=== PATIENT | male | born 1945 ===

== ENCOUNTER 2018-12-25 11:04 | Inpatient (IN) | payer MEDICARE, OTHER ==
[2018-12-25 11:05] VITALS: BMI 23.6
--- NOTE | 2018-12-25 11:42 | C.PDOC ---
History Of Present Illness 73 year old male with a history of alcohol abuse presents to the emergency department for evaluation of a fall prior to arrival. Patient is a poor historian. Patient reportedly fell at home, and his homemaker called EMS. Patient has been seen here numerous times for alcohol abuse, dizziness, and frequent falls. Patient denies any complaints at this time. Patient states his last drink was 2 days ago. as per records seen frequently for multiple falls. poor historian - HPI Time Seen by Provider: 12/25/18 11:16 Chief Complaint (Nursing): Trauma History Per: Patient Onset/Duration Of Symptoms: Hrs Injury Occurred (Timing): Just Before Arrival Past Medical History Reviewed: Historical Data, Nursing Documentation, Vital Signs Vital Signs: Last Vital Signs Temp 75 F L 12/25/18 11:13 Pulse 75 12/25/18 11:13 Resp 20 12/25/18 11:13 BP 111/62 12/25/18 11:13 Pulse Ox 92 L 12/25/18 11:13 Primary Care Provider: Alex Moore - Medical History PMH: Anxiety, Dementia, Depression, Gastritis, HTN, Kidney Stones, Pneumonia, Chronic Kidney Disease Denies: Diabetes, Hepatitis, HIV, Seizures, Sexually Transmitted Disease Surgical History: Tonsillectomy Family History: States: No Known Family Hx - Social History Hx Alcohol Use: Yes (Hx ETOH abuse) Hx Substance Use: No - Immunization History Hx Tetanus Toxoid Vaccination: No Hx Influenza Vaccination: No Hx Pneumococcal Vaccination: No Review Of Systems Review Of Systems: ROS cannot be obtained secondary to pt's inabilty to answer questions. Physical Exam - Physical Exam Appears: Non-toxic, No Acute Distress, Unkempt, Other (poor hygiene) Skin: Normal Color, Warm, Dry Head: Atraumatic, Normacephalic Eye(s): bilateral: Normal Inspection, PERRL, EOMI Nose: Normal Oral Mucosa: Moist Neck: Normal, Supple Chest: Symmetrical, No Tenderness Cardiovascular: Rhythm Regular, No Murmur Respiratory: Normal Breath Sounds, No Rales, No Rhonchi, No Wheezing Gastrointestinal/Abdominal: Soft, No Tenderness, No Guarding, No Rebound Extremity: Normal ROM Neurological/Psych: Oriented x3, Normal Speech, Normal Cognition ED Course And Treatment - Laboratory Results Result Diagrams: 12/26/18 07:05 12/26/18 07:05 ECG: Interpreted By Me, Viewed By Me ECG Rhythm: Sinus Rhythm, R BBB Rate From EC O2 Sat by Pulse Oximetry: 92 (RA) Pulse Ox Interpretation: Abnormal Medical Decision Making Medical Decision Making: ro intracrnail metabolic infectious etiology Plan: CT Head EKG Chemistry Bloodwork CXR Glucose POC Urinalysis ct shows subacute vs chronic subdurla. dsicussed with neurosx dr tami waterman findings chronic no need for further imaging. pt accepted dr tim logan, for frequent falls, unsafe discharge and living situaion unclear. Disposition - Disposition Disposition: HOSPITALIZED Disposition Time: 16:00 Condition: STABLE - Clinical Impression Clinical Impression: Frequent falls, Failure to thrive, Chronic subdural hematoma - Scribe Statement The provider has reviewed the documentation as recorded by the Scribe (Bernardo Sebastian) Provider Attestation: All medical record entries made by the Scribe were at my direction and personally dictated by me. I have reviewed the chart and agree that the record accurately reflects my personal performance of the history, physical exam, medical decision making, and the department course for this patient. I have also personally directed, reviewed, and agree with the discharge instructions and disposition. Decision To Admit - Pt Status Changed To: Hospital Disposition Of: Inpatient - Admit Certification Admit to Inpatient:: After my assessment, the patient will require hospitalization for at least two midnights. This is because of the severity of symptoms shown, intensity of services needed, and/or the medical risk in this patient being treated as an outpatient. - InPatient: Physician Admission Certification: I certify that this patient requires 2 or more midnights of care for the following reason:: needs social eval - . Bed Request Type: Regular Admitting Physician: Sissy Logan Patient Diagnosis: Frequent falls, Failure to thrive, Chronic subdural hematoma
[2018-12-25 11:48] LABS: BASO # 0.1 K/uL (0.0-0.2); BASO % 1.1 % (0.0-2.0); EOS # 0.6 K/uL (0.0-0.7); EOS % 7.2 % (0.0-4.0); LYMPH # 2.5 K/uL (1.0-4.3); LYMPH % 30.9 % (20.0-40.0); MEAN CORPUSCULAR HEMOGLOBIN 35.3 pg (27.0-31.0); MEAN CORPUSCULAR HGB CONC 35.1 g/dL (33.0-37.0); MEAN PLATELET VOLUME 9.1 fL (7.2-11.7); MONO # 0.4 K/uL (0.0-0.8); MONO % 5.4 % (0.0-10.0); NEUT # 4.4 K/uL (1.8-7.0); NEUT % 55.4 % (50.0-75.0); NRBC % 0.1 % (0.0-2.0); RBC 4.77 Mil/uL (4.40-5.90); RED CELL DISTRIBUTION WIDTH 14.9 % (11.5-14.5)
[2018-12-25 11:50] LABS: HEMOGLOBIN 16.8 g/dL (12.0-18.0); MEAN CELL VOLUME 100.4 fL (80.0-94.0)
[2018-12-25 11:58] LABS: INR 1.3; PARTIAL THROMBOPLASTIN TIME 33.5 SECONDS (21-34); PROTHROMBIN TIME 14.3 SECONDS (9.7-12.2)
[2018-12-25 12:04] LABS: ALB/GLOB RATIO 1.5 (1.0-2.1); ALBUMIN 4.6 g/dL (3.5-5.0); ALT/SGPT 28 U/L (21-72); AST/SGOT 39 U/L (17-59); BLOOD UREA NITROGEN 18 mg/dL (9-20); CALCIUM 10.3 mg/dl (8.6-10.4); GFR NON-AFRICAN AMERICAN 43; LIPASE 173 U/L (23-300)
--- NOTE | 2018-12-25 12:15 | CT ---
Date of service: 12/25/2018 PROCEDURE: CT HEAD WITHOUT CONTRAST. HISTORY: fall COMPARISON: 05/19/2017 TECHNIQUE: Axial computed tomography images were obtained through the head/brain without intravenous contrast. Radiation dose: Total exam DLP = 1191.24 mGy-cm. This CT exam was performed using one or more of the following dose reduction techniques: Automated exposure control, adjustment of the mA and/or kV according to patient size, and/or use of iterative reconstruction technique. FINDINGS: HEMORRHAGE: There is Iso to slightly low-attenuation subdural hematoma along the right cerebral convexity more prominent at the parietal occipital region may represent subacute or chronic hematoma. Maximum thickness of this subdural hematoma is 4.5 to 6 mm. BRAIN: No mass effect or edema. Ghdm-rq-hwxaeknd volume loss is again noted. Augh-bh-hpzfrsng chronic microvascular white matter ischemic changes are again noted. Again noted is focal encephalomalacia measures subcentimeter adjacent to the occipital horn of the right lateral ventricle image 37. VENTRICLES: Unremarkable. No hydrocephalus. CALVARIUM: Unremarkable. PARANASAL SINUSES: Paranasal sinuses mucosal disease is noted. MASTOID AIR CELLS: Unremarkable as visualized. No inflammatory changes. OTHER FINDINGS: None. IMPRESSION: Low-attenuation right cerebral convexity subdural hematoma noted with maximal thickness 4.5-6 millimeter Volume loss and chronic microvascular ischemic changes.
[2018-12-25 12:40] LABS: SQUAMOUS EPITHIAL < 1 /hpf (0-5); URINE BILIRUBIN NEGATIVE (NEGATIVE); URINE BLOOD NEGATIVE (NEGATIVE); URINE CLARITY Clear (Clear); URINE COLOR Yellow (YELLOW); URINE GLUCOSE (UA) NORMAL (Normal); URINE LEUKOCYTE ESTERASE TRACE Leu/uL (Negative); URINE PROTEIN NEGATIVE (NEGATIVE); URINE UROBILINOGEN NORMAL mg/dL (0.2-1.0)
[2018-12-25 13:13] LABS: BARBITURATES, UR NEGATIVE (NEGATIVE); OPIATES, UR NEGATIVE (NEGATIVE); PHENCYCLIDINE, UR NEGATIVE (NEGATIVE)
[2018-12-25 13:14] LABS: BENZODIAZEPINES, UR POSITIVE (NEGATIVE)
[2018-12-25] MEDS ORDERED: Multivitamin (MVI) 10 ML, Thiamine 100 MG, Folic Acid 1 MG in Sodium Chloride 0.9% 1,00... IV ONE (15:30)
[2018-12-25] MEDS: Pantoprazole 40 mg EC Tab PO SCH (16:25)
--- NOTE | 2018-12-25 17:19 | CP.PCM.HP ---
Past Patient History - Past Medical History & Family History Past Medical History?: Yes - Past Social History Smoking Status: Never Smoked - CARDIAC Hx Hypertension: Yes - PULMONARY Hx Pneumonia: Yes - NEUROLOGICAL Hx Dementia: Yes Hx Seizures: No - HEENT Hx HEENT Problems: Yes Other/Comment: Pt has right eye ptosis - RENAL Hx Chronic Kidney Disease: Yes Hx Kidney Stones: Yes - ENDOCRINE/METABOLIC Hx Endocrine Disorders: No - HEMATOLOGICAL/ONCOLOGICAL Hx Human Immunodeficiency Virus (HIV): No - INTEGUMENTARY Hx Dermatological Problems: No - MUSCULOSKELETAL/RHEUMATOLOGICAL Hx Falls: No - GASTROINTESTINAL Hx Gastritis: Yes - GENITOURINARY/GYNECOLOGICAL Hx Sexually Transmitted Disorders: No - PSYCHIATRIC Hx Anxiety: Yes Hx Depression: Yes Hx Substance Use: No - SURGICAL HISTORY Hx Tonsillectomy: Yes - ANESTHESIA Hx Anesthesia: Yes Hx Anesthesia Reactions: No Hx Malignant Hyperthermia: No Meds Allergies/Adverse Reactions: Allergies Allergy/AdvReac Type Severity Reaction Status Date / Time No Known Allergies Allergy Verified 12/25/18 11:20 Physical Exam - Constitutional Appears: Well - Head Exam Head Exam: ATRAUMATIC, NORMAL INSPECTION, NORMOCEPHALIC - Eye Exam Eye Exam: EOMI, Normal appearance, PERRL Pupil Exam: NORMAL ACCOMODATION, PERRL - ENT Exam ENT Exam: Mucous Membranes Moist, Normal Exam - Neck Exam Neck exam: Positive for: Normal Inspection - Respiratory Exam Respiratory Exam: Decreased Breath Sounds - Cardiovascular Exam Cardiovascular Exam: REGULAR RHYTHM, +S1, +S2 - GI/Abdominal Exam GI & Abdominal Exam: Diminished Bowel Sounds, Soft - Rectal Exam Rectal Exam: Deferred - Neurological Exam Neurological exam: Oriented x3 Results - Vital Signs Recent Vital Signs: Last Vital Signs Temp 97.5 F L 12/25/18 16:00 Pulse 63 12/25/18 16:00 Resp 20 12/25/18 16:00 BP 113/73 12/25/18 16:00 Pulse Ox 92 L 12/25/18 17:10 - Labs Result Diagrams: 12/25/18 11:43 12/25/18 11:43 Labs: Laboratory Results - last 24 hr 12/25/18 12/25/18 12/25/18 11:10 11:43 11:43 WBC 8.0 RBC 4.77 Hgb 16.8 D Hct 47.9 MCV 100.4 H D MCH 35.3 H MCHC 35.1 RDW 14.9 H Plt Count 163 D MPV 9.1 Neut % (Auto) 55.4 Lymph % (Auto) 30.9 [place] % (Auto) 5.4 Eos % (Auto) 7.2 H Baso % (Auto) 1.1 Neut # (Auto) 4.4 Lymph # (Auto) 2.5 [place] # (Auto) 0.4 Eos # (Auto) 0.6 Baso # (Auto) 0.1 PT INR APTT Sodium 141 Potassium 3.7 Chloride 102 Carbon Dioxide 25 Anion Gap 18 BUN 18 Creatinine 1.6 H Est GFR ( Amer) 52 Est GFR (Non-Af Amer) 43 POC Glucose (mg/dL) 154 H Random Glucose 162 H D Calcium 10.3 Total Bilirubin 1.0 AST 39 ALT 28 Alkaline Phosphatase 84 Total Creatine Kinase 38 L Troponin I < 0.0120 Total Protein 7.7 Albumin 4.6 Globulin 3.1 Albumin/Globulin Ratio 1.5 Lipase 173 Urine Color Urine Clarity Urine pH Ur Specific [place] Urine Protein Urine Glucose (UA) Urine Ketones Urine Blood Urine Nitrate Urine Bilirubin Urine Urobilinogen Ur Leukocyte Esterase Urine WBC (Auto) Urine RBC (Auto) Ur Squamous Epith Cells Urine Opiates Screen Urine Methadone Screen Ur Barbiturates Screen Ur Phencyclidine Scrn Ur Amphetamines Screen U Benzodiazepines Scrn U Oth Cocaine Metabols U Cannabinoids Screen Alcohol, Quantitative < 10 12/25/18 12/25/18 12/25/18 11:43 12:31 12:31 WBC RBC Hgb Hct MCV MCH MCHC RDW Plt Count MPV Neut % (Auto) Lymph % (Auto) [place] % (Auto) Eos % (Auto) Baso % (Auto) Neut # (Auto) Lymph # (Auto) [place] # (Auto) Eos # (Auto) Baso # (Auto) PT 14.3 H INR 1.3 APTT 33.5 Sodium Potassium Chloride Carbon Dioxide Anion Gap BUN Creatinine Est GFR ( Amer) Est GFR (Non-Af Amer) POC Glucose (mg/dL) Random Glucose Calcium Total Bilirubin AST ALT Alkaline Phosphatase Total Creatine Kinase Troponin I Total Protein Albumin Globulin Albumin/Globulin Ratio Lipase Urine Color Yellow Urine Clarity Clear Urine pH 6.0 Ur Specific [place] 1.013 Urine Protein Negative Urine Glucose (UA) Normal Urine Ketones Negative Urine Blood Negative Urine Nitrate Negative Urine Bilirubin Negative Urine Urobilinogen Normal Ur Leukocyte Esterase Trace Urine WBC (Auto) 2 Urine RBC (Auto) < 1 Ur Squamous Epith Cells < 1 Urine Opiates Screen Negative Urine Methadone Screen Negative Ur Barbiturates Screen Negative Ur Phencyclidine Scrn Negative Ur Amphetamines Screen Negative U Benzodiazepines Scrn Positive U Oth Cocaine Metabols Negative U Cannabinoids Screen Negative Alcohol, Quantitative
--- NOTE | 2018-12-25 18:48 | RAD ---
Date of service: 12/25/2018 PROCEDURE: CHEST RADIOGRAPH, 1 VIEW HISTORY: chest pain COMPARISON: 05/25/2017 FINDINGS: LUNGS: There are bibasilar heterogeneous opacities more prominent on the left likely represent atelectasis. PLEURA: No pneumothorax or pleural fluid seen. CARDIOVASCULAR: No aortic atherosclerotic calcification present. Normal. OSSEOUS STRUCTURES: No significant abnormalities. VISUALIZED UPPER ABDOMEN: Normal. OTHER FINDINGS: None. IMPRESSION: Bibasilar opacities likely atelectasis.
[2018-12-26 07:14] LABS: BASO # 0.1 K/uL (0.0-0.2); BASO % 1.3 % (0.0-2.0); EOS # 0.6 K/uL (0.0-0.7); EOS % 7.4 % (0.0-4.0); HEMOGLOBIN 15.6 g/dL (12.0-18.0); LYMPH # 2.9 K/uL (1.0-4.3); LYMPH % 35.7 % (20.0-40.0); MEAN CELL VOLUME 100.3 fL (80.0-94.0); MEAN CORPUSCULAR HEMOGLOBIN 34.9 pg (27.0-31.0); MEAN CORPUSCULAR HGB CONC 34.8 g/dL (33.0-37.0); MEAN PLATELET VOLUME 8.9 fL (7.2-11.7); MONO # 0.6 K/uL (0.0-0.8); MONO % 7.5 % (0.0-10.0); NEUT # 3.8 K/uL (1.8-7.0); NEUT % 48.1 % (50.0-75.0); RBC 4.46 Mil/uL (4.40-5.90)
[2018-12-26 07:35] LABS: ALB/GLOB RATIO 1.6 (1.0-2.1); ALT/SGPT 28 U/L (21-72); AST/SGOT 42 U/L (17-59); BLOOD UREA NITROGEN 18 mg/dL (9-20); CALCIUM 8.8 mg/dl (8.6-10.4); GFR NON-AFRICAN AMERICAN 54
[2018-12-26] MEDS: Multiple Vitamins Tab PO SCH (09:50)
[2018-12-26] MEDS: Pantoprazole 40 mg EC Tab PO SCH (09:50)
--- NOTE | 2018-12-26 13:32 | CP.PCM.PN ---
Subjective - Date & Time of Evaluation Date of Evaluation: 12/26/18 Time of Evaluation: 08:40 - Subjective Subjective: patient examined today no dizziness no diarrhea no fever no nausea no vomiting no shortness of breath Objective - Vital Signs/Intake and Output Vital Signs (last 24 hours): Temp Pulse Resp BP Pulse Ox 97.7 F 68 20 113/74 95 12/26/18 08:00 12/26/18 08:00 12/26/18 08:00 12/26/18 08:00 12/26/18 08:00 Intake and Output: 12/26/18 12/26/18 06:59 18:59 Intake Total 1430 Output Total 300 Balance 1130 - Medications Medications: Current Medications Chlordiazepoxide (Librium) 25 mg PO Q8 PRN PRN Reason: ALCOHOL WITHDRWAL Last Admin: 12/26/18 00:55 Dose: 25 mg Multivitamins (Hexavitamin) 1 tab PO DAILY [facility] Last Admin: 12/26/18 09:50 Dose: 1 tab Pantoprazole Sodium (Protonix Ec Tab) 40 mg PO DAILY [facility] Last Admin: 12/26/18 09:50 Dose: 40 mg Potassium Chloride (K-Dur 20 Meq Er Tab) 40 meq PO ONCE ONE Stop: 12/26/18 14:01 Last Admin: 12/26/18 13:22 Dose: 40 meq - Labs Labs: 12/26/18 07:05 12/26/18 07:05 PT 14.3 SECONDS (9.7-12.2) H 12/25/18 11:43 INR 1.3 12/25/18 11:43 APTT 33.5 SECONDS (21-34) 12/25/18 11:43 - Constitutional Appears: Well - Head Exam Head Exam: ATRAUMATIC, NORMAL INSPECTION, NORMOCEPHALIC - Eye Exam Eye Exam: EOMI, Normal appearance, PERRL Pupil Exam: NORMAL ACCOMODATION, PERRL - ENT Exam ENT Exam: Mucous Membranes Moist, Normal Exam - Neck Exam Neck Exam: Full ROM, Normal Inspection. absent: Lymphadenopathy - Respiratory Exam Respiratory Exam: Decreased Breath Sounds - Cardiovascular Exam Cardiovascular Exam: REGULAR RHYTHM, +S1, +S2 - GI/Abdominal Exam GI & Abdominal Exam: Soft, Diminished Bowel Sounds - Rectal Exam Rectal Exam: Deferred - Neurological Exam Neurological Exam: Oriented x3 Assessment and Plan - Assessment and Plan (Free Text) Plan: plan discussed with patient moderate complexity of care hexavitamin k-dur librium protonix ec tab medications reviewed labs reviewed vitals reviewed
[2018-12-26] MEDS ORDERED: Potassium Chloride 20 mEq ER Tab PO ONE (14:00)
--- NOTE | 2018-12-26 20:42 | CARD ---
APPROVED REPORT Date of service: 12/25/2018 EKG Measurement Heart [id number] <Conclusion> Normal sinus rhythm Right bundle branch block Abnormal ECG
--- NOTE | 2018-12-27 00:45 | CON ---
DATE: 12/26/2018 HISTORY OF PRESENT ILLNESS: This is a 73-year-old male with a past medical history of alcohol abuse and the patient reportedly fell at home and brought here by EMS. The patient also complained of numerous times admitted here for alcohol abuse, dizziness, and frequent falls. The patient says he drank two days ago. PAST MEDICAL HISTORY: As above. . PHYSICAL EXAMINATION: HEENT: Normocephalic and atraumatic. NECK: Supple. NEUROLOGIC: Awake and orientated to self. Cranial nerves II to XII were tested. Pupils equal and reactive to light. EOMs intact. Moves all extremities spontaneously. Deep tendon reflexes 1+. Plantars are downgoing. Sensory appears intact. Cerebellar, gait deferred. IMPRESSION: Chronic subdural hematoma . We will follow up with recommendations. Gualberto Cavazos MD
[2018-12-27 07:22] LABS: ALB/GLOB RATIO 1.4 (1.0-2.1); ALBUMIN 4.4 g/dL (3.5-5.0); ALT/SGPT 34 U/L (21-72); AST/SGOT 43 U/L (17-59); BLOOD UREA NITROGEN 15 mg/dL (9-20); CALCIUM 9.5 mg/dl (8.6-10.4); GFR NON-AFRICAN AMERICAN 50; HEMOGLOBIN 16.6 g/dL (12.0-18.0); MEAN CELL VOLUME 101.8 fL (80.0-94.0); MEAN CORPUSCULAR HEMOGLOBIN 34.5 pg (27.0-31.0); MEAN CORPUSCULAR HGB CONC 33.8 g/dL (33.0-37.0); MEAN PLATELET VOLUME 9.4 fL (7.2-11.7); RBC 4.83 Mil/uL (4.40-5.90); RED CELL DISTRIBUTION WIDTH 14.8 % (11.5-14.5)
[2018-12-27] MEDS: Multiple Vitamins Tab PO SCH (09:43)
[2018-12-27] MEDS: Pantoprazole 40 mg EC Tab PO SCH (09:43)
--- NOTE | 2018-12-27 10:18 | CP.PCM.PCO ---
Physician Communication Note - Physician Communication Note Physician Communication Note: rec PT eval. c/w multivitamin, libirum, and etoch cessation.
[2018-12-27] MEDS ORDERED: guaiFENesin DM 100 mg-10 mg/5 ml UD PO PRN (17:45)
--- NOTE | 2018-12-27 20:08 | CP.PCM.PN ---
Subjective - Date & Time of Evaluation Date of Evaluation: 12/27/18 - Subjective Subjective: patient examined today no nausea, no vomiting, no dizziness, no diarrhea, no fever no shortness of breath Objective - Vital Signs/Intake and Output Vital Signs (last 24 hours): Temp Pulse Resp BP Pulse Ox 98.3 F 69 20 127/81 95 12/27/18 16:53 12/27/18 16:53 12/27/18 16:53 12/27/18 16:53 12/27/18 16:53 - Medications Medications: Current Medications Chlordiazepoxide (Librium) 25 mg PO Q8 PRN PRN Reason: ALCOHOL WITHDRWAL Last Admin: 12/27/18 02:11 Dose: 25 mg Guaifenesin/Dextromethorphan (Robitussin Dm) 5 ml PO Q4H PRN PRN Reason: Cough Multivitamins (Hexavitamin) 1 tab PO DAILY [facility] Last Admin: 12/27/18 09:43 Dose: 1 tab Pantoprazole Sodium (Protonix Ec Tab) 40 mg PO DAILY [facility] Last Admin: 12/27/18 09:43 Dose: 40 mg - Labs Labs: 12/27/18 06:49 12/27/18 06:49 PT 14.3 SECONDS (9.7-12.2) H 12/25/18 11:43 INR 1.3 12/25/18 11:43 APTT 33.5 SECONDS (21-34) 12/25/18 11:43 - Constitutional Appears: Well - Head Exam Head Exam: ATRAUMATIC, NORMAL INSPECTION, NORMOCEPHALIC - Eye Exam Eye Exam: EOMI, Normal appearance, PERRL Pupil Exam: NORMAL ACCOMODATION, PERRL - ENT Exam ENT Exam: Mucous Membranes Moist, Normal Exam - Neck Exam Neck Exam: Full ROM, Normal Inspection. absent: Lymphadenopathy - Respiratory Exam Respiratory Exam: Decreased Breath Sounds - Cardiovascular Exam Cardiovascular Exam: REGULAR RHYTHM, +S1, +S2 - GI/Abdominal Exam GI & Abdominal Exam: Soft, Diminished Bowel Sounds - Rectal Exam Rectal Exam: Deferred - Neurological Exam Neurological Exam: Oriented x3 Assessment and Plan - Assessment and Plan (Free Text) Plan: plan discussed with patient moderate complexity of care hexavitamin k-dur librium protonix ec tab medications reviewed labs reviewed vitals reviewed
[2018-12-28] MEDS: Multiple Vitamins Tab PO SCH (10:19)
[2018-12-28] MEDS: Pantoprazole 40 mg EC Tab PO SCH (10:20)
--- NOTE | 2018-12-28 14:23 | CP.PCM.PN ---
Subjective - Date & Time of Evaluation Date of Evaluation: 12/28/18 - Subjective Subjective: patient seen and examined today no nausea no vomiting no fever no dizziness no diarrhea no shortness of breath Objective - Vital Signs/Intake and Output Vital Signs (last 24 hours): Temp Pulse Resp BP Pulse Ox 98.1 F 63 18 122/76 96 12/28/18 07:12 12/28/18 07:12 12/28/18 07:12 12/28/18 07:12 12/28/18 07:12 Intake and Output: 12/28/18 12/28/18 06:59 18:59 Intake Total 200 Balance 200 - Medications Medications: Current Medications Chlordiazepoxide (Librium) 25 mg PO Q8 PRN PRN Reason: ALCOHOL WITHDRWAL Last Admin: 12/27/18 02:11 Dose: 25 mg Guaifenesin/Dextromethorphan (Robitussin Dm) 5 ml PO Q4H PRN PRN Reason: Cough Multivitamins (Hexavitamin) 1 tab PO DAILY [facility] Last Admin: 12/28/18 10:19 Dose: 1 tab Pantoprazole Sodium (Protonix Ec Tab) 40 mg PO DAILY [facility] Last Admin: 12/28/18 10:20 Dose: 40 mg - Labs Labs: 12/27/18 06:49 12/27/18 06:49 PT 14.3 SECONDS (9.7-12.2) H 12/25/18 11:43 INR 1.3 12/25/18 11:43 APTT 33.5 SECONDS (21-34) 12/25/18 11:43 - Constitutional Appears: Well - Head Exam Head Exam: ATRAUMATIC, NORMAL INSPECTION, NORMOCEPHALIC - Eye Exam Eye Exam: EOMI, Normal appearance, PERRL Pupil Exam: NORMAL ACCOMODATION, PERRL - ENT Exam ENT Exam: Mucous Membranes Moist, Normal Exam - Neck Exam Neck Exam: Full ROM, Normal Inspection. absent: Lymphadenopathy - Respiratory Exam Respiratory Exam: Decreased Breath Sounds - Cardiovascular Exam Cardiovascular Exam: REGULAR RHYTHM, +S1, +S2 - GI/Abdominal Exam GI & Abdominal Exam: Diminished Bowel Sounds - Rectal Exam Rectal Exam: Deferred - Neurological Exam Neurological Exam: Oriented x3
[2018-12-29 08:36] VITALS: BP 122/74; PULSE 67; RESP 20; TEMP 97.8; O2SAT 95
[2018-12-29] MEDS: Multiple Vitamins Tab PO SCH (10:04)
[2018-12-29] MEDS: Pantoprazole 40 mg EC Tab PO SCH (10:04)
--- NOTE | 2018-12-29 14:17 | CP.PCM.PN ---
Subjective - Date & Time of Evaluation Date of Evaluation: 12/29/18 Time of Evaluation: 14:16 - Subjective Subjective: PATIENT SEEN AND EXAMINED AT THE BEDSIDE Objective - Vital Signs/Intake and Output Vital Signs (last 24 hours): Temp Pulse Resp BP Pulse Ox 97.8 F 67 20 122/74 95 12/29/18 07:00 12/29/18 07:00 12/29/18 07:00 12/29/18 07:00 12/29/18 07:00 Intake and Output: 12/29/18 12/29/18 06:59 18:59 Intake Total 410 Balance 410 - Medications Medications: Current Medications Chlordiazepoxide (Librium) 25 mg PO Q8 PRN PRN Reason: ALCOHOL WITHDRWAL Last Admin: 12/27/18 02:11 Dose: 25 mg Guaifenesin/Dextromethorphan (Robitussin Dm) 5 ml PO Q4H PRN PRN Reason: Cough Multivitamins (Hexavitamin) 1 tab PO DAILY [facility] Last Admin: 12/29/18 10:04 Dose: 1 tab Pantoprazole Sodium (Protonix Ec Tab) 40 mg PO DAILY [facility] Last Admin: 12/29/18 10:04 Dose: 40 mg - Labs Labs: 12/27/18 06:49 12/27/18 06:49 PT 14.3 SECONDS (9.7-12.2) H 12/25/18 11:43 INR 1.3 12/25/18 11:43 APTT 33.5 SECONDS (21-34) 12/25/18 11:43 Assessment and Plan - Assessment and Plan (Free Text) Assessment: FOLLOW UP WITH DR Rambo SUMNER IN HIS OFFICE FOLLOW UP WITH DR HO IN HIS OFFICE CONTINUE HOME MEDICATION ACTIVITY TOLERATED CALL DR Rambo SUMNER OR GO TO THE EMERGENCY ROOM IF SYMPTOM RETURN OR WORSENING
--- NOTE | 2019-01-03 01:35 | CP.PCM.DIS ---
Provider - Provider Date of Admission: 12/25/18 12:36 Attending physician: Dahiana Guallpa MD Consults: 12/25/18 14:56 Neurology Consult Routine Comment: CHRONIC SUBDURAL HEMATOMA Consulting Provider: Pako Ho Consulting Physician: Pako Ho Reason for Consult: CHRONIC SUBDURAL HEMATOMA 12/25/18 14:57 Physician Consult Routine Comment: Consulting Provider: Ramo Burns Consulting Physician: Ramo Burns Reason for Consult: SUBDURAL HEMATOMA Time Spent in preparation of Discharge (in minutes): 30 Hospital Course - Lab Results Lab Results: Most Recent Lab Values WBC 10.0 K/uL (4.8-10.8) 12/27/18 06:49 RBC 4.83 Mil/uL (4.40-5.90) 12/27/18 06:49 Hgb 16.6 g/dL (12.0-18.0) 12/27/18 06:49 Hct 49.2 % (35.0-51.0) 12/27/18 06:49 MCV 101.8 fL (80.0-94.0) H 12/27/18 06:49 MCH 34.5 pg (27.0-31.0) H 12/27/18 06:49 MCHC 33.8 g/dL (33.0-37.0) 12/27/18 06:49 RDW 14.8 % (11.5-14.5) H 12/27/18 06:49 Plt Count 171 K/uL (130-400) 12/27/18 06:49 MPV 9.4 fL (7.2-11.7) 12/27/18 06:49 Neut % (Auto) 48.1 % (50.0-75.0) L 12/26/18 07:05 Lymph % (Auto) 35.7 % (20.0-40.0) 12/26/18 07:05 [place] % (Auto) 7.5 % (0.0-10.0) 12/26/18 07:05 Eos % (Auto) 7.4 % (0.0-4.0) H 12/26/18 07:05 Baso % (Auto) 1.3 % (0.0-2.0) 12/26/18 07:05 Neut # (Auto) 3.8 K/uL (1.8-7.0) 12/26/18 07:05 Lymph # (Auto) 2.9 K/uL (1.0-4.3) 12/26/18 07:05 [place] # (Auto) 0.6 K/uL (0.0-0.8) 12/26/18 07:05 Eos # (Auto) 0.6 K/uL (0.0-0.7) 12/26/18 07:05 Baso # (Auto) 0.1 K/uL (0.0-0.2) 12/26/18 07:05 PT 14.3 SECONDS (9.7-12.2) H 12/25/18 11:43 INR 1.3 12/25/18 11:43 APTT 33.5 SECONDS (21-34) 12/25/18 11:43 Sodium 140 mmol/L (132-148) 12/27/18 06:49 Potassium 4.0 mmol/L (3.6-5.2) 12/27/18 06:49 Chloride 105 mmol/L (98-107) 12/27/18 06:49 Carbon Dioxide 23 mmol/L (22-30) 12/27/18 06:49 Anion Gap 15 (10-20) 12/27/18 06:49 BUN 15 mg/dL (9-20) 12/27/18 06:49 Creatinine 1.4 mg/dL (0.8-1.5) 12/27/18 06:49 Est GFR ( Amer) > 60 12/27/18 06:49 Est GFR (Non-Af Amer) 50 12/27/18 06:49 POC Glucose (mg/dL) 111 mg/dL (65-110) H 12/29/18 11:37 Random Glucose 120 mg/dL (75-110) H 12/27/18 06:49 Calcium 9.5 mg/dl (8.6-10.4) 12/27/18 06:49 Phosphorus 2.5 mg/dL (2.5-4.5) 12/26/18 07:05 Magnesium 1.9 mg/dL (1.6-2.3) 12/26/18 07:05 Total Bilirubin 0.6 mg/dL (0.2-1.3) 12/27/18 06:49 AST 43 U/L (17-59) 12/27/18 06:49 ALT 34 U/L (21-72) 12/27/18 06:49 Alkaline Phosphatase 77 U/L (38-126) 12/27/18 06:49 Total Creatine Kinase 38 U/L (55-170) L 12/25/18 11:43 Troponin I < 0.0120 ng/mL (0.00-0.120) 12/25/18 11:43 Total Protein 7.7 g/dL (6.3-8.3) 12/27/18 06:49 Albumin 4.4 g/dL (3.5-5.0) 12/27/18 06:49 Globulin 3.2 gm/dL (2.2-3.9) 12/27/18 06:49 Albumin/Globulin Ratio 1.4 (1.0-2.1) 12/27/18 06:49 Lipase 173 U/L (23-300) 12/25/18 11:43 Urine Color Yellow (YELLOW) 12/25/18 12:31 Urine Clarity Clear (Clear) 12/25/18 12:31 Urine pH 6.0 (5.0-8.0) 12/25/18 12:31 Ur Specific [place] 1.013 (1.003-1.030) 12/25/18 12:31 Urine Protein Negative mg/dL (NEGATIVE) 12/25/18 12:31 Urine Glucose (UA) Normal mg/dL (Normal) 12/25/18 12:31 Urine Ketones Negative mg/dL (NEGATIVE) 12/25/18 12:31 Urine Blood Negative (NEGATIVE) 12/25/18 12:31 Urine Nitrate Negative (NEGATIVE) 12/25/18 12:31 Urine Bilirubin Negative (NEGATIVE) 12/25/18 12:31 Urine Urobilinogen Normal mg/dL (0.2-1.0) 12/25/18 12:31 Ur Leukocyte Esterase Trace Jono/uL (Negative) 12/25/18 12:31 Urine WBC (Auto) 2 /hpf (0-5) 12/25/18 12:31 Urine RBC (Auto) < 1 /hpf (0-3) 12/25/18 12:31 Ur Squamous Epith Cells < 1 /hpf (0-5) 12/25/18 12:31 Urine Opiates Screen Negative (NEGATIVE) 12/25/18 12:31 Urine Methadone Screen Negative (NEGATIVE) 12/25/18 12:31 Ur Barbiturates Screen Negative (NEGATIVE) 12/25/18 12:31 Ur Phencyclidine Scrn Negative (NEGATIVE) 12/25/18 12:31 Ur Amphetamines Screen Negative (NEGATIVE) 12/25/18 12:31 U Benzodiazepines Scrn Positive (NEGATIVE) 12/25/18 12:31 U Oth Cocaine Metabols Negative (NEGATIVE) 12/25/18 12:31 U Cannabinoids Screen Negative (NEGATIVE) 12/25/18 12:31 Alcohol, Quantitative < 10 mg/dl (0-10) 12/25/18 11:43 - Hospital Course Hospital Course: No injury although patient is confused patient to talk goes in and out all the patient knows the year patient knows the date patient knows is normal 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 Ho in 1week return to the emergency room if her condition [id number] gentleman with altered mental status family is usually bedside admitted because of Moderate to high complexity of care. Plan of care discussed with patient &/or family & staff. Explained through the diplomatic interpreter Discharge Exam - Head Exam Head Exam: ATRAUMATIC, NORMAL INSPECTION, NORMOCEPHALIC - Eye Exam Eye Exam: EOMI, Normal appearance, PERRL Pupil Exam: NORMAL ACCOMODATION, PERRL - ENT Exam ENT Exam: Normal Exam - Neck Exam Neck exam: Full Rom - Respiratory Exam Respiratory Exam: Decreased Breath Sounds, Rales - Cardiovascular Exam Cardiovascular Exam: REGULAR RHYTHM, +S1, +S2 - GI/Abdominal Exam GI & Abdominal Exam: Diminished Bowel Sounds, Soft - Rectal Exam Rectal Exam: Deferred - Neurological Exam Neurological exam: Alert Discharge Plan - Follow Up Plan Condition: STABLE Disposition: HOME/ ROUTINE Instructions: Preventing Falls, Failure to Thrive (DC) Additional Instructions: FOLLOW UP WITH DR Rambo GUALLPA IN HIS OFFICE FOLLOW UP WITH DR HO IN HIS OFFICE CONTINUE HOME MEDICATION ACTIVITY TOLERATED CALL DR Rambo GUALLPA OR GO TO THE EMERGENCY ROOM IF SYMPTOM RETURN OR WORSENING Referrals: Pako Ho MD [Staff Provider] - Sissy Guallpa MD [Staff Provider] -
== END 2018-12-29 16:40 | disposition home or self-care (01) | DRG 66 ==
LOC: C.ER 11:04 → C.9E 12:36 → C.5S 13:14
PROVIDERS: ADMIT Internal Medicine Nephrology; ATTEND Internal Medicine Nephrology
DX: I62.03 Nontraumatic chronic subdural hemorrhage (principal); R62.7 Adult failure to thrive; R29.6 Repeated falls; F03.90 Unspecified dementia, unspecified severity, without behavioral disturbance, psychotic disturbance, mood disturbance, and anxiety; F10.11 Alcohol abuse, in remission; I12.9 Hypertensive chronic kidney disease with stage 1 through stage 4 chronic kidney disease, or unspecified chronic kidney disease; N18.9 Chronic kidney disease, unspecified